=== PATIENT | female | born 1945 | race Caucasian/White ===

== ENCOUNTER 2018-04-19 16:00 | Inpatient (IN) ==
--- NOTE | 2018-04-19 16:34 | Emergency Department Note ---
Disposition Clinical Impression: CVA (cerebrovascular accident) Qualifiers: CVA mechanism: unspecified Qualified Code(s): I63.9 - Cerebral infarction, unspecified Disposition: Admitted As Inpatient Condition: Fair Neuro HPI - General Chief Complaint: ED Weakness Stated Complaint: weakness Time Seen by Provider: 04/19/18 16:12 Source: patient, EMS, other (ECF report) Mode of arrival: EMS Limitations: no limitations Nursing Notes Reviewed: Yes Vital Signs Reviewed: Yes - History of Present Illness HPI Narrative: Patient presents to the ED via EMS with report of left-sided weakness and right sided facial drooping. Per ECF report prior to patient's arrival patient has had left-sided weakness off-and-on for the past few days and was noticed to have right-sided facial droop this morning. On arrival patient states she woke up not feeling well in the middle of the night last night around midnight but did not tell anyone. She did have a headache at that time. States around 10 AM this morning she noticed she was having trouble with her vision when she tried to read. She states that her left arm and left leg are weak and have been so off and on for the past few days. I contacted the on duty nurse at the [facility] who states that she had been informed that the patient had been dragging her left foot off-and-on over the past 3 days. This morning the day shift staff noticed the patient's left arm and machine attendant to be weak and the right side of her face to be drooping and her speech was slurred. However, the facility physician was not notified until after there was a shift change in nursing staff this afternoon. Patient does have history of prior stroke but was not known to have any residual deficits. She has had no recent falls or injuries. Patient denies any current headache, chest pain or shortness of breath. No numbness or tingling in her arms or legs although she is aware that her left arm and leg are weak. She states her vision is more blurred than usual. Denies any double vision. - Related Data Home Medications: Home Medications Medication Instructions Recorded Confirmed Acetaminophen [Tylenol] 500 mg PO Q4HR PRN 06/08/16 04/19/18 Bisacodyl [Dulcolax] 2 tab PO DAILY PRN 06/08/16 04/19/18 Butalb/Acetaminophen/Caffeine 1 tab PO Q4H PRN 06/08/16 04/19/18 Carvedilol [Coreg] 25 mg PO BID 06/08/16 04/19/18 Citalopram [CeleXA] 20 mg PO DAILY 06/08/16 04/19/18 Famotidine [Pepcid] 20 mg PO BID 06/08/16 04/19/18 Furosemide [Lasix] 20 mg PO QMWF 06/08/16 04/19/18 HYDROcodone/Acet 10/325 mg [[place] 1 tab PO DAILY 06/08/16 04/19/18 10-325 mg] Insulin Glargine,Hum.rec.anlog 15 unit SQ HS 06/08/16 04/19/18 [Lantus Solostar] Lisinopril [Zestril] 40 mg PO DAILY 06/08/16 04/19/18 Multivitamin with Minerals 1 each PO DAILY 06/08/16 04/19/18 [One-A-Day Maximum Formula] Potassium Chloride [Klor-Con] 10 meq PO DAILY 06/08/16 04/19/18 Promethazine [Phenergan] 25 mg PO Q4H PRN 06/08/16 04/19/18 Quetiapine Fumarate [SEROquel] 200 mg PO HS 06/08/16 04/19/18 Tamoxifen Citrate 20 mg PO DAILY 06/08/16 04/19/18 Zolpidem [Ambien] 5 mg PO HS PRN 06/08/16 04/19/18 clonazePAM [Klonopin] 0.5 mg PO BID 06/08/16 04/19/18 Naproxen [Naprosyn] 500 mg PO BID PRN 04/19/18 04/19/18 Nortriptyline [Pamelor] 10 mg PO HS 04/19/18 04/19/18 Ondansetron HCl [Zofran] 4 mg PO Q6H PRN 04/19/18 04/19/18 Promethazine [Phenergan] 25 mg PO HS 04/19/18 04/19/18 Trazodone HCl 50 mg PO HS 04/19/18 04/19/18 amLODIPine [Norvasc] 5 mg PO DAILY 04/19/18 04/19/18 Allergies/Adverse Reactions: Allergies Allergy/AdvReac Type Severity Reaction Status Date / Time Erythromycin Base Allergy Hives Verified 04/19/18 17:00 [place] Allergy Hives Verified 04/19/18 17:00 metoclopramide [From Reglan] Allergy Hives Verified 04/19/18 17:00 morphine Allergy Rash Verified 04/19/18 17:00 phenytoin [From Dilantin] Allergy Hives Verified 04/19/18 17:00 Constitutional: Denies: fever, chills, weakness, weight change Eyes: Denies: eye pain, eye discharge, vision change ENT ED: Denies: ear pain, throat pain, dental pain, hearing loss, epistaxis, congestion, dysphagia Cardiovascular: Denies: chest pain, palpitations, dyspnea on exertion, edema, syncope Respiratory: Denies: cough, dyspnea, wheezes, hemoptysis, stridor Gastrointestinal: Denies: abdominal pain, nausea, vomiting, diarrhea, constipation, hematemesis, melena, hematochezia Genitourinary: Denies: dysuria, frequency, hematuria, discharge Musculoskeletal: Denies: back pain, neck pain, arthralgia, myalgia Integumentary: Denies: rash, abrasion, lesions Neurological: Reports: as per HPI, weakness (left side). Denies: headache, numbness, paresthesias, confusion, abnormal gait, vertigo Psychiatric: Denies: anxiety, depression, suicidal thoughts, homicidal thoughts , auditory hallucinations, visual hallucinations Endocrine: Denies: fatigue Hematological/Lymphatic: Denies: easy bleeding, easy bruising Allergic/Immunologic: Denies: facial swelling, urticaria Past Medical History - Past Medical History Medical history: Reports: cancer, CHF, diabetes, GERD, hyperlipidemia, hypertension, migraine Surgical history: Reports: appendectomy, cholecystectomy, hysterectomy, other ( Breast surgery for breast cancer) Psychiatric history: Reports: anxiety, bipolar, depression, schizophrenia 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 LEADER history: Reports: no RESTAURANT SHIFT LEADER history - Social History Smoking Status: Never smoker Smokeless Tobacco Status: No Alcohol use: Reports: none Drug use: Reports: none Physical Exam - General Limitations: no limitations General appearance: alert, in no apparent distress - Head Head exam: atraumatic, normocephalic, normal inspection - Eye Eye exam: Present: normal appearance, PERRL, EOMI - ENT ENT exam: normal exam, normal oropharynx, mucous membranes moist - Neck Neck exam: Present: normal inspection, full ROM, trachea midline - Chest Chest inspection: Present: normal inspection, symmetric chest wall rise - Respiratory Respiratory exam: Present: normal lung sounds bilaterally - Cardiovascular Cardiovascular exam: Present: regular rate, normal rhythm, normal heart sounds - Abdominal Exam Abdominal exam: Present: soft, Non-Tender. Absent: tenderness, distention, guarding, rebound, rigidity - Extremities Exam Extremities exam: Present: normal inspection, full ROM, normal capillary refill. Absent: tenderness, pedal edema - Back Exam Back exam: Present: normal inspection, full ROM. Absent: tenderness - Neurological Exam Neurological exam: Present: alert, oriented X3, motor sensory deficit - Expanded Neurological Exam Patient oriented to: Present: person, place Speech: Present: fluid speech Cranial nerves: facial palsy (VII): Abnormal Right (facial droop) Cerebellar function: finger to nose: Normal Motor strength - LUE: 4/5 Motor strength - RUE: 5/5 Motor strength - LLE: 3/5 Motor strength - RLE: 5/5 Upper motor neuron exam: lian neglect: Absent bilaterally Sensory exam upper extremity: light touch: Normal, pin prick: Normal Sensory exam lower extremity: light touch: Normal, pin prick: Normal Coma Scale Eye Opening: Spontaneous Coma Scale Motor Response: Obeys Commands Coma Scale Verbal Response: Oriented Coma Scale Total: 15 - Psychiatric Psychiatric exam: Present: normal affect, normal mood - Skin Skin exam: Present: warm, dry, intact, normal color Course Course Narrative: Patient presents to the ED from a local nursing facility with report of right- sided facial droop, slurred speech and left-sided weakness that was present at 7 AM today, over 9 hours prior to presentation. Patient apparently has had some intermittent left-sided weakness over the past few days that may have represented antecedent TIAs before what appears to be a new CVA at this time. Will obtain laboratory studies and head CT although patient is unfortunately outside the window for TPA intervention assuming she does not any have any intracranial hemorrhage. - Reevaluation(s) Reevaluation #1: Laboratory studies are unremarkable. CT of the head shows evidence of old prior infarcts but no new acute infarct or hemorrhage. Discussed with patient the need for admission for further evaluation and treatment of her new left- sided weakness and she is in agreement. I spoke to the hospitalist on-call, Dr. Du, who cares for this patient at her ECF, and he has agreed to accept her for further management and workup. Vital Signs Temperature 99.3 F 04/19/18 16:04 Pulse Rate 69 04/19/18 16:04 Respiratory Rate 15 04/19/18 16:04 Blood Pressure 154/72 04/19/18 16:04 O2 Sat by Pulse Oximetry 96 04/19/18 16:04 Temperature 98.5 F 04/19/18 20:49 Pulse Rate 67 04/19/18 20:49 Respiratory Rate 17 04/19/18 20:49 Blood Pressure 173/70 04/19/18 20:49 O2 Sat by Pulse Oximetry 97 04/19/18 20:49 Oxygen Delivery Oxygen Delivery Room Air Neuro Symptoms/Deficit - Differential Diagnosis Likely: cerebrovascular accident, subarachnoid hemorrhage, transient cerebral ischemia - Medical Records Medical records reviewed: Yes I reviewed the patient's medical records. - Lab Data Lab results reviewed: Yes I reviewed the patient's lab results. Result diagrams: 04/19/18 16:45 04/19/18 16:45 Lab Results 04/19/18 04/19/18 04/19/18 Range/Units 16:45 16:45 16:45 WBC 6.8 (4.3-11.1) K/mcL RBC 3.85 (3.82-4.97) M/mcL Hgb 11.3 L (11.5-15.4) g/dL Hct 32.6 L (35.3-44.9) % MCV 84.7 (83.0-100.0) fL MCH 29.4 (28.0-33.3) pg MCHC 34.7 (31.6-35.5) g/dL RDW 13.2 (11.5-14.5) % Plt Count 180 (140-400) K/mcL MPV 10.4 (9.4-12.4) fL Immature Gran % 0.1 (0-4) % Seg Neutrophils % 61.9 % Lymphocytes % 30.3 % Monocytes % 6.0 % Eosinophils % 1.0 % Basophils % 0.7 % Neutrophils # 4.2 (1.6-8.9) K/mcL Lymphocytes # 2.1 (0.6-4.6) K/mcL Monocytes # 0.4 (0.0-1.3) K/mcL Eosinophils # 0.1 (0.0-0.6) K/mcL Basophils # 0.1 (0.0-0.2) K/mcL PT 11.1 (9.4-12.1) Seconds INR 1.0 APTT 29.1 (26.0-36.0) Seconds Sodium 132 L (136-145) mEq/L Potassium 4.0 (3.5-5.1) mEq/L Chloride 97 L (98-107) mEq/L Carbon Dioxide 29 (23-29) mEq/L BUN 7 L (8-23) mg/dL Creatinine 0.73 (0.60-1.20) mg/dL Est GFR ( Amer) > 60 (> 60) Est GFR (Non-Af Amer) > 60 (> 60) BUN/Creatinine Ratio 10 (6-26) Glucose 195 H (70-105) mg/dL Calculated Osmolality 277 L (280-300) Calcium 8.7 (8.6-10.3) mg/dL Troponin I < 0.03 (< 0.04) ng/mL - Radiology Data Radiology results reviewed: Yes I reviewed the patient's radiology results. ITS Impressions Head CT 04/19/18 16:41 IMPRESSION: 1. No acute intracranial abnormality. 2. Moderate global parenchymal volume loss with moderate chronic microvascular ischemic change. 3. Sequelae of a prior infarct within the left VEST PRESSER territory. 4. There appears to be a chronic lacunar infarct within the right jennyfer. 5. Scattered atherosclerosis of the intracranial vasculature. D/ / Kvng Cooney MD / Kvng Cooney MD Interpreting Provider: Kvng Cooney MD - EKG Data EKG attestation: Yes I reviewed and interpreted this EKG. EKG shows normal: sinus rhythm Rate: normal Rhythm: NSR [place]/QRS: normal Interpretation: no acute changes, normal EKG NIH Stroke Scale - Level of Consciousness LOC: Alert - LOC Questions LOC Questions: Answers both correctly - LOC Commands LOC Commands: Performs both correctly - Best Gaze Best Gaze: Normal - Visual Visual: Partial hemianopia - Facial Palsy Facial Palsy: Minor asymmetry on smiling, flattened nasolabial fold - Motor Arms Motor Arm-Left: Some effort against gravity, limb drifts to bed Motor Arm-Right: No drift for 10 seconds - Motor Legs Motor Leg-Left: Some effort against gravity, limb drifts to bed Motor Leg-Right: No drift for 5 seconds - Limb Ataxia Limb Ataxia: Present in TWO limbs - Sensory Sensory: Normal - Best Language Best Language: No aphasia - Dysarthria Dysarthria: Normal - Extinction and Inattention Extinction and Inattention: Normal - NIHSS Total Score NIHSS Total Score: 8 TPA Checklist - Source Information Source: [facility] staff - Eligibilty for IV tPA 1. LKW equal to or less than 4.5 hours be before treatment: No 2. Clinical diagnosis of ischemic stroke causing deficit: Yes 3. Age 18 years or older: Yes - Contraindications 5. Presentation suggests subarachnoid hem, even if CT normal: No 7. Known neoplasm, arteriovenous malformation, or aneurysm: No 8. Significant head trauma (w/ LOC) or CVA in last 3 months: No 9. BP elevated (systolic > 185 or diastolic > 110): No 10. Abnormal Blood Glucose (<50 or >400mg/dl): No 11. Active internal bleeding [PM.TPA15]: No 12. Known bleeding risk (including; not limited to 13-15): No 13. Heparin/argatroban/bivalirudin w/in 48hrs & PTT > normal: No 14. Platelet count less than 100,000/MM3: No 15. Current or recent use of anticoagualants (see protocol): No - Warnings/Precautions Considerations 16. Prior ischemic stroke within last 3 months: No 17. Recent history of intracranial hemorrhage: No 18. : No 19. Current/recent use Effient (7 days) or Brilinta (5 days): No 20. Arterial puncture at non compressible site or LP >7days: No 21. Major surgery or serious trauma in last 14 days: No 22. GI or urinary tract hemorrhage in last 21 days: No 23. IA involving left anterior myocardium in last 3 months: No 24. Suspected or known infective endocarditis/pericarditis: No - LKW: 3-4.5 hrs Add. Warnings/Precautions 21. oral anticoag other than warfarin regardles of last dose: No Patient/family understanding: The patient/family members have been counseled and understood the risk, benefit , and alternatives of treatment.
[2018-04-19 16:54] LABS: Basophils # 0.1 K/mcL (0.0-0.2); Basophils % 0.7 %; Eosinophils # 0.1 K/mcL (0.0-0.6); Hematocrit 32.6 % (35.3-44.9); Hemoglobin 11.3 g/dL (11.5-15.4); Immature Granulocytes % 0.1 % (0-4); Lymphocytes # 2.1 K/mcL (0.6-4.6); Lymphocytes % 30.3 %; Mean Corpuscular HGB Conc 34.7 g/dL (31.6-35.5); Mean Corpuscular Hemoglobin 29.4 pg (28.0-33.3); Mean Corpuscular Volume 84.7 fL (83.0-100.0); Mean Platelet Volume 10.4 fL (9.4-12.4); Monocytes # 0.4 K/mcL (0.0-1.3); Neutrophils # 4.2 K/mcL (1.6-8.9); Platelet Count 180 K/mcL (140-400); Red Blood Count 3.85 M/mcL (3.82-4.97); Red Cell Distribution Width 13.2 % (11.5-14.5); Segmented Neutrophils % 61.9 %
[2018-04-19 17:00] LABS: Prothrombin Time 11.1 Seconds (9.4-12.1)
[2018-04-19 17:02] LABS: Activated Partial Thrombo Time 29.1 Seconds (26.0-36.0)
[2018-04-19 17:11] LABS: BUN/Creatinine Ratio 10 (6-26); Blood Urea Nitrogen 7 mg/dL (8-23); Calcium 8.7 mg/dL (8.6-10.3); Carbon Dioxide 29 mEq/L (23-29); Chloride 97 mEq/L (98-107); Glucose 195 mg/dL (70-105); Osmolality,Calculated 277 (280-300); Sodium 132 mEq/L (136-145); eGFR For African Americans > 60 (> 60); eGFR For Non-African Americans > 60 (> 60)
[2018-04-19 17:13] LABS: Troponin I < 0.03 ng/mL (< 0.04)
[2018-04-19] MEDS ORDERED: Naloxone 0.4 MG/ML INJ IVP PRN ×2 (18:43→20:49)
[2018-04-19] MEDS ORDERED: Aspirin Enteric Coated 325 MG Tablet PO ONE (18:50)
[2018-04-19] MEDS ORDERED: Acetaminophen/Butalbital/CaffeineTABLET PO PRN (20:49)
[2018-04-19] MEDS ORDERED: Ondansetron ODT 4 MG TAB.RAPDIS PO PRN (20:49)
[2018-04-19] MEDS ORDERED: Acetaminophen 325 MG TABLET PO PRN (20:49)
[2018-04-19] MEDS ORDERED: *HR* Dextrose 50 % in Water (Syg) 50 ML SYRINGE IVP PRN (20:49)
[2018-04-19] MEDS ORDERED: D5% in Water 1,000 ML IVC PRN (20:49)
[2018-04-19] MEDS ORDERED: Dextrose Gel 15 GM/37.5 ML TUBE PO PRN ×2 (20:49)
[2018-04-19] MEDS ORDERED: Insulin DETEMIR 100 UNIT/ML per UNIT SQ SCH (21:00)
[2018-04-19] MEDS ORDERED: Insulin DETEMIR 100 UNIT/ML per UNIT SQ ONE (21:30)
[2018-04-19] MEDS: clonazePAM 0.5 MG TABLET PO SCH (22:06)
[2018-04-19] MEDS: Famotidine 20 MG TABLET PO SCH (22:06)
[2018-04-19] MEDS: traZODone 50 MG TABLET PO SCH (22:06)
[2018-04-19] MEDS: Insulin LISPRO 300 UNITS/3 ML VIAL SQ SCH (22:07)
[2018-04-20] MEDS: Insulin LISPRO 300 UNITS/3 ML VIAL SQ SCH ×4 (08:39→20:44)
[2018-04-20] MEDS: Furosemide 20 MG TABLET PO SCH (08:42)
[2018-04-20] MEDS: *HR* HYDROcodone/Acet 10/325 mg TABLET PO SCH (08:42)
[2018-04-20] MEDS: clonazePAM 0.5 MG TABLET PO SCH ×2 (08:42→20:39)
[2018-04-20] MEDS: amLODIPine 5 MG TABLET PO SCH (08:44)
[2018-04-20] MEDS: Lisinopril 20 MG TABLET PO SCH (08:45)
[2018-04-20] MEDS: Famotidine 20 MG TABLET PO SCH ×2 (08:45→20:39)
[2018-04-20] MEDS: Multivit/Ca/Min/Fe/FA 1 TAB TABLET PO SCH (08:45)
[2018-04-20] MEDS ORDERED: MOM Conc 10 ML UD.LIQ PO SCH (11:00)
--- NOTE | 2018-04-20 11:05 | Internal Med History&Physical ---
Date of Encounter: 04/20/18 Time of Encounter: 10:00 Assessment and Plan (1) CVA (cerebrovascular accident) Current visit: Yes Status: Acute Suspect brainstem location. Will order MRI to further evaluate. She will need evaluation by PT, OT, and ST. Qualifiers: CVA mechanism: unspecified Qualified Code(s): I63.9 - Cerebral infarction, unspecified (2) Diastolic heart failure Current visit: Yes Status: Chronic Continue Norvasc, Coreg, and lisinopril. Qualifiers: Heart failure chronicity: chronic Qualified Code(s): I50.32 - Chronic diastolic (congestive) heart failure (3) DM type 2 (diabetes mellitus, type 2) Current visit: Yes Status: Chronic Hemoglobin A1c was 5.9% on 01/09/2018. Continue Levemir/Lantus and Accu-Cheks with SSI. 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 Qualifiers: Hypertension type: essential hypertension Qualified Code(s): I10 - Essential (primary) hypertension Internal Medicine - H&P: HPI Chief complaint: Right face, left arm/leg weakness Admitted From: Emergency Dept Plans for Post Hospital Care: Transfer Senior Financial Care History of present illness: Ms. Valencia is a 73 year old female who was sent to emergency room after nursing staff at a local SNF noted right face weakness present. There was also left arm weakness felt to be present. Patient was unaware of these changes. She was evaluated in emergency room. Head CT showed no acute changes. She was admitted to [facility] floor for ongoing care needs. Patient is still unaware of weakness. Her neurologic history is significant for reported CVA in 2011 leaving her with impaired eyesight. She denies large distribution strokes. She states she had [place] dance ([place] chorea) as a child. She has chronic left esotropia. Past Med Surg Social Fam HX - Past Medical History Medical history: cancer, CHF, diabetes, GERD, hyperlipidemia, hypertension, migraine Additional medical history: vitreous hemorrhage bilateral, anemiaconstipation, insomnia, hyperkalemia, pain, breast carcinoma, edema, fractured patella, nutritional deficiency, pneumonia, Psychiatric history: anxiety, bipolar, depression, schizophrenia - Past Surgical History Surgical History: appendectomy, cholecystectomy, hysterectomy, other (Breast surgery for breast cancer) Additional surgical history: R knee surgery, - Social History Smoking Status: Never smoker Smokeless Tobacco Status: No Alcohol use: none Drug use: none Internal Medicine - H&P: Meds Acetaminophen [Tylenol] 500 mg PO Q4HR PRN 06/08/16 [History] Bisacodyl [Dulcolax] 2 tab PO DAILY PRN 06/08/16 [History] Butalb/Acetaminophen/Caffeine 1 tab PO Q4H PRN 06/08/16 [History] Carvedilol [Coreg] 25 mg PO BID 06/08/16 [History] Citalopram [CeleXA] 20 mg PO DAILY 06/08/16 [History] Famotidine [Pepcid] 20 mg PO BID 06/08/16 [History] Furosemide [Lasix] 20 mg PO QMWF 06/08/16 [History] HYDROcodone/Acet 10/325 mg [[place] 10-325 mg] 1 tab PO DAILY 06/08/16 [History] Insulin Glargine,Hum.rec.anlog [Lantus Solostar] 15 unit SQ HS 06/08/16 [History ] Lisinopril [Zestril] 40 mg PO DAILY 06/08/16 [History] Multivitamin with Minerals [One-A-Day Maximum Formula] 1 each PO DAILY 06/08/16 [History] Potassium Chloride [Klor-Con] 10 meq PO DAILY 06/08/16 [History] Promethazine [Phenergan] 25 mg PO Q4H PRN 06/08/16 [History] Quetiapine Fumarate [SEROquel] 200 mg PO HS 06/08/16 [History] Tamoxifen Citrate 20 mg PO DAILY 06/08/16 [History] Zolpidem [Ambien] 5 mg PO HS PRN 06/08/16 [History] clonazePAM [Klonopin] 0.5 mg PO BID 06/08/16 [History] Naproxen [Naprosyn] 500 mg PO BID PRN 04/19/18 [History] Nortriptyline [Pamelor] 10 mg PO HS 04/19/18 [History] Ondansetron HCl [Zofran] 4 mg PO Q6H PRN 04/19/18 [History] Promethazine [Phenergan] 25 mg PO HS 04/19/18 [History] Trazodone HCl 50 mg PO HS 04/19/18 [History] amLODIPine [Norvasc] 5 mg PO DAILY 04/19/18 [History] 3 Allergy/AdvReac Type Severity Reaction Status Date / Time Erythromycin Base Allergy Hives Verified 04/19/18 17:00 [place] Allergy Hives Verified 04/19/18 17:00 metoclopramide [From Reglan] Allergy Hives Verified 04/19/18 17:00 morphine Allergy Rash Verified 04/19/18 17:00 phenytoin [From Dilantin] Allergy Hives Verified 04/19/18 17:00 All Systems PM: A 10-system review of systems was performed and is negative for pertinent findings except as documented above in the HPI. Review of systems: Gen.: Her weight has minimally changed from 155 pounds May 2013 to 153 pounds at present Cardiovascular: She has history of hypertension but no known [place] heart failure angina DVT or pulmonary embolus. She had echocardiogram 11/11/2012 at [facility] which showed LVEF of 60%. There was mild diastolic dysfunction, mild aortic insufficiency, and trivial pericardial effusion. Regadenoson test 11/12/2012 at [facility] showed no EKG or perfusion evidence of ischemia with estimated LVEF greater than 70% Respiratory: She is a lifelong nonsmoker and has no known chronic lung disease GI: She has had cholecystectomy and appendectomy. She denies disorders of her liver or exocrine pancreas. She had EGD and colonoscopy November 2012 for heme positive stools. These showed esophagitis, gastritis, and diverticular disease with evidence of previous partial colectomy done approximately 2007. She has GERD. : She denies hematuria dysuria or kidney stones Neurologic: As per history of present illness Endocrine: She was diagnosed with DM 2 approximately age 47. 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 She follows with [place] oncologist. She has had intermitted anemia over several years Psychiatric: She has anxiety, depression, bipolar and migraine headaches. [place] skeletal: She had right patella fracture with repair May 2013. She has minimal DJD and no known gout or osteoporosis. - Constitutional Vitals: Temp Pulse Resp BP Pulse Ox 98.8 F 75 16 160/66 95 04/20/18 10:14 04/20/18 10:14 04/20/18 10:14 04/20/18 10:14 04/20/18 10:14 Exam: Gen.: She is a well-developed well-nourished female resting comfortably in bed who appears in no acute distress HEENT: Head is atraumatic. Eyes: She has chronic left eye esotropia. EOMI. Mouth: Mucosa is moist Neck: Supple and nontender. There is no thyromegaly or adenopathy noted. Heart: Regular without murmurs gallops or ectopics Lungs: No wheezes or crackles are heard. Abdomen: There is mild tenderness in the left lower abdominal area. Bowel sounds are present. No masses or guarding are noted. Extremities: There is no cyanosis edema or clubbing noted. Dorsalis pedis and posttibial pulses are trace to 1+ palpable bilaterally. Neurologic: Mental status: She is talkative and a fair historian. She does not remember some details of her history. Cranial nerves: She has flattening of the right nasolabial fold. There is noticeable right lower face weakness. The forehead wrinkles bilaterally but appears stronger on the left than the right. Tongue protrudes midline. EOMI. Motor: She has normal strength of the right leg on flexion/extension strength testing at the ankle and knee. There is no right pronator drift. The left arm shows pronator drift. There is decreased strength in the left leg on flexion/extension against resistance at the ankle and knee. Cerebellar: Finger to nose is intact bilaterally. Skin: Warm and dry Internal Med - H&P Results - Labs CBC & Chem 7: 04/19/18 16:45 04/19/18 16:45 - VTE Reasons for not Prescribing Prophylaxis: Treatment not Indicated - Low risk for VTE
--- NOTE | 2018-04-20 16:31 | Electrocardiograph Report ---
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
[2018-04-20] MEDS: traZODone 50 MG TABLET PO SCH (20:39)
[2018-04-20] MEDS: Aspirin 81 MG TAB.CHEW PO SCH (20:39)
[2018-04-20] MEDS: Insulin DETEMIR 100 UNIT/ML X5UNITS SQ SCH (20:45)
[2018-04-21 07:50] LABS: Basophils # 0.1 K/mcL (0.0-0.2); Basophils % 0.8 %; Eosinophils # 0.2 K/mcL (0.0-0.6); Eosinophils % 2.1 %; Hematocrit 33.4 % (35.3-44.9); Hemoglobin 11.5 g/dL (11.5-15.4); Immature Granulocytes % 0.3 % (0-4); Lymphocytes # 2.1 K/mcL (0.6-4.6); Lymphocytes % 28.4 %; Mean Corpuscular HGB Conc 34.4 g/dL (31.6-35.5); Mean Corpuscular Hemoglobin 29.3 pg (28.0-33.3); Monocytes # 0.5 K/mcL (0.0-1.3); Monocytes % 6.5 %; Neutrophils # 4.5 K/mcL (1.6-8.9); Platelet Count 168 K/mcL (140-400); Red Blood Count 3.93 M/mcL (3.82-4.97); Red Cell Distribution Width 13.3 % (11.5-14.5); Segmented Neutrophils % 61.9 %
[2018-04-21] MEDS: Insulin LISPRO 300 UNITS/3 ML VIAL SQ SCH ×4 (07:54→20:28)
[2018-04-21 08:07] LABS: Chol/HDL Ratio 3.4 (0-4.9)
[2018-04-21] MEDS: clonazePAM 0.5 MG TABLET PO SCH ×2 (09:56→20:27)
[2018-04-21] MEDS: Famotidine 20 MG TABLET PO SCH ×2 (09:57→20:27)
[2018-04-21] MEDS: *HR* HYDROcodone/Acet 10/325 mg TABLET PO SCH (09:57)
[2018-04-21] MEDS: Aspirin 81 MG TAB.CHEW PO SCH (09:57)
[2018-04-21] MEDS: amLODIPine 5 MG TABLET PO SCH (09:57)
[2018-04-21] MEDS: Multivit/Ca/Min/Fe/FA 1 TAB TABLET PO SCH (09:57)
[2018-04-21] MEDS: Lisinopril 20 MG TABLET PO SCH (09:58)
[2018-04-21 11:49] LABS: Estimated Average Glucose 146 mg/dl; Hemoglobin A1C 6.7 %
--- NOTE | 2018-04-21 17:04 | Internal Med Progress Note ---
Date of Encounter: 04/21/18 Time of Encounter: 16:55 - Assessment and plan (1) CVA (cerebrovascular accident) Current Visit: Yes Status: Acute Assessment and plan: [place] CVAs. We will continue PT, OT, and ST. She has been started on aspirin 81 mg daily for secondary prevention. Qualifiers: CVA mechanism: unspecified Qualified Code(s): I63.9 - Cerebral infarction, unspecified (2) Diastolic heart failure Current Visit: Yes Status: Chronic Assessment and plan: April 21. Continue Norvasc, Coreg, and lisinopril. Qualifiers: Heart failure chronicity: chronic Qualified Code(s): I50.32 - Chronic diastolic (congestive) heart failure (3) DM type 2 (diabetes mellitus, type 2) Current Visit: Yes Status: Chronic Assessment and plan: April 21. Hemoglobin A1c was 5.9% on 01/09/2018. Continue Lantus/Levemir and Accu-Cheks with SSI. 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 Continue Norvasc, Coreg, and lisinopril. Qualifiers: Hypertension type: essential hypertension Qualified Code(s): I10 - Essential (primary) hypertension - Subjective Interval history: April 21. She has no new complaints. - Constitutional Vitals: Temp Pulse Resp BP Pulse Ox 98.8 F 62 16 136/62 94 04/21/18 10:04/21/18 10:00 04/21/18 10:00 04/21/18 10:04/21/18 10:00 Exam: She is resting comfortably in bed and appears in no acute distress. Her affect is cheerful. The left side arm and leg weakness and right face weakness are unchanged on exam from yesterday. I reviewed her medications and lab results. I discussed with her the findings of the brain MRI. Internal Medicine: Result - Labs CBC & Chem 7: 04/21/18 07:29 04/19/18 16:45 Labs: Short CBC 04/21/18 Range/Units 07:29 WBC 7.3 (4.3-11.1) K/mcL Hgb 11.5 (11.5-15.4) g/dL Hct 33.4 L (35.3-44.9) % Plt Count 168 (140-400) K/mcL Neutrophils # 4.5 (1.6-8.9) K/mcL - ABG Interpretation ABG results: PT/INR, D-dimer PT 11.1 Seconds (9.4-12.1) 04/19/18 16:45 - VTE Reasons for not Prescribing Prophylaxis: Treatment not Indicated - Low risk for VTE Consult Discharge Plan - Plan Referrals: Baljeet Du MD [Primary Care Provider] - 1 week
[2018-04-21] MEDS: traZODone 50 MG TABLET PO SCH (20:27)
[2018-04-21] MEDS: Insulin DETEMIR 100 UNIT/ML X5UNITS SQ SCH (20:27)
[2018-04-22] MEDS: Insulin LISPRO 300 UNITS/3 ML VIAL SQ SCH ×2 (08:37→12:04)
[2018-04-22] MEDS: Multivit/Ca/Min/Fe/FA 1 TAB TABLET PO SCH (08:38)
[2018-04-22] MEDS: Famotidine 20 MG TABLET PO SCH (08:38)
[2018-04-22] MEDS: *HR* HYDROcodone/Acet 10/325 mg TABLET PO SCH (08:38)
[2018-04-22] MEDS: Aspirin 81 MG TAB.CHEW PO SCH (08:39)
[2018-04-22] MEDS: clonazePAM 0.5 MG TABLET PO SCH (08:39)
[2018-04-22] MEDS: amLODIPine 5 MG TABLET PO SCH (08:39)
[2018-04-22] MEDS: Lisinopril 20 MG TABLET PO SCH (08:39)
[2018-04-22] MEDS: Furosemide 20 MG TABLET PO SCH (08:39)
[2018-04-22 09:53] VITALS: BP 157/87
--- NOTE | 2018-04-22 10:49 | Discharge Summary ---
Orders not resulted at time of discharge: Pending orders 04/21/18 17:02 EV carotid duplex imaging BI Routine Date of Encounter: 04/22/18 Time of Encounter: 10:42 - Discharge Diagnosis (1) CVA (cerebrovascular accident) Priority: Primary Status: Acute Qualifiers: CVA mechanism: unspecified Qualified Code(s): I63.9 - Cerebral infarction, unspecified (2) Diastolic heart failure Priority: Secondary Status: Chronic Qualifiers: Heart failure chronicity: chronic Qualified Code(s): I50.32 - Chronic diastolic (congestive) heart failure (3) DM type 2 (diabetes mellitus, type 2) Priority: Secondary Status: Chronic Qualifiers: Diabetes mellitus half-way insulin use: with aegis operations specialist use Diabetes mellitus complication status: without complication Qualified Code(s): E11.9 - Type 2 diabetes mellitus without complications; Z79.4 - medical case worker (current) use of insulin (4) Hypertension Priority: Secondary Status: Chronic Qualifiers: Hypertension type: essential hypertension Qualified Code(s): I10 - Essential (primary) hypertension Hospital course: Ms. Valencia is a 73 year old female who was sent to emergency room after nursing staff at a local [facility] noted right face weakness present. There was also left arm weakness felt to be present. Patient was unaware of these changes. She was evaluated in emergency room. Head CT showed no acute changes. She was admitted to [facility] for ongoing care needs. Initial orders were written by the emergency room physician. I saw her on April 20 and performed the history and physical. Head CT in the ER did not show acute findings. I suspected she had brainstem infarct. MRI of brain 2017 showed acute 12 x 6 mm right paracentral infarct along the inferior margin of the jennyfer at the pontomedullary junction. There was a second infarct measuring 6 x 3 mm within the dorsal aspect of the jennyfer to the right of midline involving the right facial colliculus. 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 She was placed on aspirin. Carotid Doppler studies were ordered and will be done prior to discharge. Physical therapy, occupational therapy, and speech therapy evaluations were ordered. She will continue therapy at the long term. Hemoglobin A1c returned satisfactory at 6.7%. Lipid profile showed total cholesterol 161, triglycerides 135, LDL 87, HDL 47, and total/HDL ratio 3.4. She will be discharged to [facility] [place] after carotid Doppler studies are done today. She will follow with me there and continue in therapy. - Time Spent with Patient Total time spent providing and/or coordinating discharge services: - Discharge Medications Home Medications: Acetaminophen [Tylenol] 500 mg PO Q4HR PRN 06/08/16 [History] Bisacodyl [Dulcolax] 2 tab PO DAILY PRN 06/08/16 [History] Butalb/Acetaminophen/Caffeine 1 tab PO Q4H PRN 06/08/16 [History] Carvedilol [Coreg] 25 mg PO BID 06/08/16 [History] Citalopram [CeleXA] 20 mg PO DAILY 06/08/16 [History] Famotidine [Pepcid] 20 mg PO BID 06/08/16 [History] Furosemide [Lasix] 20 mg PO QMWF 06/08/16 [History] HYDROcodone/Acet 10/325 mg [[place] 10-325 mg] 1 tab PO DAILY 06/08/16 [History] Insulin Glargine,Hum.rec.anlog [Lantus Solostar] 15 unit SQ HS 06/08/16 [History ] Lisinopril [Zestril] 40 mg PO DAILY 06/08/16 [History] Multivitamin with Minerals [One-A-Day Maximum Formula] 1 each PO DAILY 06/08/16 [History] Potassium Chloride [Klor-Con] 10 meq PO DAILY 06/08/16 [History] Promethazine [Phenergan] 25 mg PO Q4H PRN 06/08/16 [History] Quetiapine Fumarate [Seroquel] 200 mg PO HS 06/08/16 [History] Tamoxifen Citrate 20 mg PO DAILY 06/08/16 [History] Zolpidem [Ambien] 5 mg PO HS PRN 06/08/16 [History] clonazePAM [Klonopin] 0.5 mg PO BID 06/08/16 [History] Nortriptyline [Pamelor] 10 mg PO HS 04/19/18 [History] Ondansetron HCl [Zofran] 4 mg PO Q6H PRN 04/19/18 [History] Promethazine [Phenergan] 25 mg PO HS 04/19/18 [History] Trazodone HCl 50 mg PO HS 04/19/18 [History] amLODIPine [Norvasc] 5 mg PO DAILY 04/19/18 [History] Aspirin 81 mg PO DAILY tab.chew 04/22/18 [Rx] Allergies/Adverse Reactions: 3 Allergy/AdvReac Type Severity Reaction Status Date / Time Erythromycin Base Allergy Hives Verified 04/19/18 17:00 [place] Allergy Hives Verified 04/19/18 17:00 metoclopramide [From Reglan] Allergy Hives Verified 04/19/18 17:00 morphine Allergy Rash Verified 04/19/18 17:00 phenytoin [From Dilantin] Allergy Hives Verified 04/19/18 17:00 Date of admission: 04/20/18 11:25 Primary care physician: Baljeet Du MD Consults: 04/20/18 19:42 Consult to Occupational Therapy [CONS] Routine Comment: Evaluate, develop and implement POC Reason for Consult: cva Does patient have active BEDREST order?: No Is patient medically & hemodynamically stable?: Yes Patient assessed for mobility or mobilized this visit?: Yes Consult to Physical Therapy [CONS] Routine Comment: Evaluate, develop and implement POC Reason for Consult: cva Does patient have active BEDREST order?: No Is patient medically & hemodynamically stable?: Yes Patient assessed for mobility or mobilized this visit?: Yes Consult to Speech Therapy [CONS] Routine Comment: Evaluate, develop and implement POC Reason for Consult: cva Call Completed: No - Constitutional Vitals: Temp Pulse Resp BP Pulse Ox 99.1 F 73 17 157/87 95 04/22/18 09:49 04/22/18 09:49 04/22/18 09:49 04/22/18 09:49 04/22/18 09:49 - Patient Status Disposition: Transfer SNF Condition: Fair - Discharge Instructions - Diet and Activity Activity: as per physical therapy Diet: diabetic diet - VTE Reasons for not Prescribing Prophylaxis: Treatment not Indicated - Low risk for VTE
--- NOTE | 2018-04-22 11:07 | Physician Discharge Referral ---
ExtendedCare Referral Info Transfer To: [facility] Provider in Charge: Florian Provider in Charge after Transfer: PCP Arlene) Institutional Level of Care: Skilled - Diagnosis (1) CVA (cerebrovascular accident) Priority: Primary Status: Acute (2) Diastolic heart failure Priority: Secondary Status: Chronic (3) DM type 2 (diabetes mellitus, type 2) Priority: Secondary Status: Chronic (4) Hypertension Priority: Secondary Status: Chronic Prognosis: Fair Aware of Diagnosis: Patient Aware of Prognosis: Patient - Transfer Medications Home Medications: Acetaminophen [Tylenol] 500 mg PO Q4HR PRN 06/08/16 [History] Bisacodyl [Dulcolax] 2 tab PO DAILY PRN 06/08/16 [History] Butalb/Acetaminophen/Caffeine 1 tab PO Q4H PRN 06/08/16 [History] Carvedilol [Coreg] 25 mg PO BID 06/08/16 [History] Citalopram [CeleXA] 20 mg PO DAILY 06/08/16 [History] Famotidine [Pepcid] 20 mg PO BID 06/08/16 [History] Furosemide [Lasix] 20 mg PO QMWF 06/08/16 [History] HYDROcodone/Acet 10/325 mg [[place] 10-325 mg] 1 tab PO DAILY 06/08/16 [History] Insulin Glargine,Hum.rec.anlog [Lantus Solostar] 15 unit SQ HS 06/08/16 [History ] Lisinopril [Zestril] 40 mg PO DAILY 06/08/16 [History] Multivitamin with Minerals [One-A-Day Maximum Formula] 1 each PO DAILY 06/08/16 [History] Potassium Chloride [Klor-Con] 10 meq PO DAILY 06/08/16 [History] Promethazine [Phenergan] 25 mg PO Q4H PRN 06/08/16 [History] Quetiapine Fumarate [Seroquel] 200 mg PO HS 06/08/16 [History] Tamoxifen Citrate 20 mg PO DAILY 06/08/16 [History] Zolpidem [Ambien] 5 mg PO HS PRN 06/08/16 [History] clonazePAM [Klonopin] 0.5 mg PO BID 06/08/16 [History] Nortriptyline [Pamelor] 10 mg PO HS 04/19/18 [History] Ondansetron HCl [Zofran] 4 mg PO Q6H PRN 04/19/18 [History] Promethazine [Phenergan] 25 mg PO HS 04/19/18 [History] Trazodone HCl 50 mg PO HS 04/19/18 [History] amLODIPine [Norvasc] 5 mg PO DAILY 04/19/18 [History] Aspirin 81 mg PO DAILY tab.chew 04/22/18 [Rx] Allergies/Adverse Reactions: 3 Allergy/AdvReac Type Severity Reaction Status Date / Time Erythromycin Base Allergy Hives Verified 04/19/18 17:00 [place] Allergy Hives Verified 04/19/18 17:00 metoclopramide [From Reglan] Allergy Hives Verified 04/19/18 17:00 morphine Allergy Rash Verified 04/19/18 17:00 phenytoin [From Dilantin] Allergy Hives Verified 04/19/18 17:00 - Respiratory Orders Smoking Cessation: Smoking cessation has been advised. For more information, call the [place] Tobacco Quit Line at 2-851-PMXA-NOW. - Mobility Orders Ambulate - Rehabiliation Orders Rehab Potential: Fair Rehab Orders: Evaluation for Physical Therapy, Evaluation for Occupational Therapy, Evaluation for Speech Therapy - Diet Orders No Concentrated Sweets CERTIFICATION: I certify that the transfer of the above named patient to an Extended Care Facility is necessary for the continuing treatment of the diagnosis listed. The above information is true and accurate reflection of patient's current condition. Confidential - Redisclosure prohibited without a patient's written consent.
== END 2018-04-22 14:35 | DRG 45 ==
LOC: EMEROOPIK 16:00 → INPPIK 16:00
PROVIDERS: ADMIT Internal Medicine; ATTEND Internal Medicine